=== PATIENT | female | born 1965 | race Caucasian/White ===

== ENCOUNTER → 2019-02-13 | Outpatient (CLI) | payer OTHER ==
[2019-02-13 16:06] VITALS: BP 125/83; PULSE 93; RESP 16; TEMP 98.1; BMI 39.3
--- NOTE | 2019-02-13 18:37 | P.BASOAP ---
Subjective Progress Note Date: 02/13/19 Principal diagnosis: morbid obesity Patient on our service. Had a lap band placed in 2005. Was emptied in the past for bad reflux and frequent vomiting. Patient interested in conversion. She is not interested in gastric bypass because of the malabsorption issues. Patient jc urbassamtly has diabetes hypertension and hypothyroidism. Denies heartburn or vomiting currently. Still has some dysphagia to dry meats. With the band the patient was as low as 168. Prior to the LAP-BAND she was 251. Today her BMI is 39 with a weight of 225. Objective - Vital Signs Vital signs: Vital Signs Temp 98.1 F 02/13/19 16:03 Pulse 93 02/13/19 16:03 Resp 16 02/13/19 16:03 BP 125/83 02/13/19 16:03 Pulse Ox Intake & Output 02/12/19 02/13/19 02/13/19 18:59 06:59 18:59 Weight 102.257 kg - Exam Abdomen: Soft, nontender, nondistended Assessment/Plan (1) Obesity (BMI 30-39.9) Narrative/Plan: Surgical options reviewed with the patient in detail. She plans to attend this evening's bariatric informational seminar. Patient remains interested in conversion to sleeve gastrectomy. We'll review with patient's insurance to determine her candidacy. Will require preoperative EGD. Plan: Date: 02/13/19 Initial Weight: 251 kg Initial BMI: 96.5 Current Weight: 102.257 kg Current BMI: 39.3 Type of Surgery: Total Volume in Band: Previous Volume: Volume Removed: Volume Added: Band Size:
== END ==
LOC: BARWHC3 15:32
PROVIDERS: ATTEND Surgery
DX: E66.01 Morbid (severe) obesity due to excess calories (principal); R11.10 Vomiting, unspecified; R13.10 Dysphagia, unspecified; Z68.39 Body mass index [BMI] 39.0-39.9, adult
CPT/HCPCS: 99211